=== PATIENT | female | born 1995 | race Caucasian/White ===

== ENCOUNTER 2017-08-19 02:11 | Emergency (ER) | payer BC, OTHER ==
[2017-08-19 02:19] VITALS: TEMP 36.5; O2SAT 98
[2017-08-19] MEDS ORDERED: ONDANSETRON 4MG OD TAB ONE (02:37)
[2017-08-19 02:54] LABS: BLOOD UREA NITROGEN 11 mg/dl (7-18); CALCIUM 8.6 mg/dl (8.5-10.1); CARBON DIOXIDE 19 mmol/L (21-32); CREATININE 0.73 mg/dl (0.60-1.20); GLUCOSE 98 mg/dl (70-99); POTASSIUM 2.9 mmol/L (3.5-5.1); SODIUM 136 mmol/L (136-145)
[2017-08-19] MEDS ORDERED: POTASSIUM CHLORIDE 20 MEQ TABCR PO STA (04:58)
[2017-08-19] MEDS ORDERED: POTASSIUM CHLORIDE 10 MEQ TABCR ONE (05:00)
[2017-08-19] MEDS ORDERED: BCPILLS PO (05:13)
[2017-08-19 05:20] VITALS: BP 90/39; PULSE 80; O2SAT 98
--- NOTE | 2017-08-19 08:34 | EMERGENCY ROOM VISIT NOTE ---
History Report prepared by Latrell: Silvana Oakes Under the Supervision of: Dr. Rasheeda Saenz D.O. First contact with patient: 02:15 Stated Complaint: ALCOHOL History of Present Illness The patient is a 22 year old female who presents to the Emergency Room with complaints of an episode of alcohol overdose occurring prior to arrival. Per EMS , the patient had 3 drinks tonight. They report that her roommates said she wasn 't able to move on her own and was breathing strangely. EMS states that they found her sitting slumped over upon arrival. The patient states that she had a [employer] and 2 [place] iced teas. The patient denies any breathing problems , falling, and knowing why she is shaking. HPI and ROS limited secondary to intoxication. Source of History: patient, EMS History Limited By: intoxication Onset: prior to arrival Position: other (global) Quality: other (overdose) Timing: other (episode) Note: The patient denies knowing why she is shaking, falling, and having any breathing problems. Review of Systems See HPI for pertinent positives & negatives. A total of 10 systems reviewed and were otherwise negative. Past Medical & Surgical Medical Problems: (1) No Known Active Medical Problems Family History No pertinent family history Social History Smoking Status: Unknown if Ever Smoked Alcohol Use: occasionally Marital Status: single Housing Status: lives with roommate Occupation Status: [employer] student Current/Historical Medications Scheduled Control Pills ( Control Pills), 1 TAB PO DAILY Allergies Coded Allergies: No Known Allergies (Unverified , 08/19/17) Physical Exam Vital Signs Date Time Temp Pulse Resp B/P (MAP) Pulse Ox O2 Delivery O2 Flow Rate FiO2 08/19/17 05:20 80 16 90/39 98 08/19/17 04:30 82 19 103/44 96 Room Air 08/19/17 04:05 74 08/19/17 04:00 83 18 104/51 96 Room Air 08/19/17 03:30 84 17 90/59 96 Room Air 08/19/17 03:00 86 18 94/59 88 Room Air 08/19/17 02:30 92 14 122/76 95 Room Air 08/19/17 02:20 105 08/19/17 02:19 36.5 106 19 111/88 98 Room Air 08/19/17 02:19 98 Room Air Physical Exam General: Semiresponsive and smells of alcohol. HEENT: Head - normocephalic and atraumatic Pupils are 2 mm and non-reactive to light. Extraocular eye muscles are intact, and sclera are anicteric. Nose - moist nasal mucosa without discharge. Mouth - moist buccal mucosa. Oropharynx is nonerythematous and there is no tonsillar exudate or edema noted. Neck: Supple; no JVD, nuchal rigidity, cervical lymphadenopathy. Heart: Tachycardic rate and regular rhythm. There is a normal S1 and S2 with no murmurs, clicks, or gallops appreciated. Lungs: Clear to auscultation bilaterally with no wheezes, rales, or rhonchi. Abdomen: Soft, completely nontender, nondistended, with good bowel sounds. There are no palpable pulsatile masses or hepatosplenomegaly. There is no guarding, rigidity, or rebound noted. Extremities: No evidence of cyanosis, clubbing, or edema. There are easily palpable peripheral pulses. Skin: warm and dry with good turgor and no rashes. Medical Decision & Procedures Laboratory Results 08/19/17 02:17 Test 08/19/17 02:17 Anion Gap 14.0 mmol/L (3-11) Estimated GFR () 135.5 Estimated GFR (Non- 116.9 BUN/Creatinine Ratio 14.4 (10-20) Calcium Level 8.6 mg/dl (8.5-10.1) Ethyl Alcohol mg/dL 175.0 mg/dl (0-3) Laboratory results per my review. Medications Administered Medications (Trade) Dose Ordered Sig/Bibiana Route Start Time Stop Time Status Last Admin Dose Admin Ondansetron HCl (Zofran Odt) 4 mg STK-MED ONCE .ROUTE 08/19/17 02:37 08/19/17 02:38 DC 08/19/17 02:37 4 MG Potassium Chloride (Klor-Con M10) 20 meq STK-MED ONCE .ROUTE 08/19/17 05:00 08/19/17 05:01 DC 08/19/17 05:00 20 MEQ Procedure 0237: Ordered Zofran Odt 4 mg 0458: Ordered Potassium Chloride 20 meq PO. ED Course 0216: Past medical records reviewed. The patient was evaluated in room A12A. A complete history and physical exam was performed. Laboratory studies were drawn as above. She was observed on the metalizing machine operator automatic and pulse oximeter. She was placed in the prone position to avoid aspiration. 0237: Ordered Zofran Odt 4 mg for persistent dry heaving. 0458: Ordered Potassium Chloride 20 meq PO. 0500: Upon reevaluation, the patient was awake and alert. I discussed findings and results with her. She verbalized agreement of the treatment plan. The patient was discharged home. Medical Decision The patient is a 22 year old female who presents to the Emergency Room with complaints of an episode of alcohol overdose occurring prior to arrival. Differential diagnoses include alcohol overdose, drug intoxication, hypoglycemia , head injury. LABS: Potassium 2.9 Normal renal function Normal glucose Alcohol 175 This is a 22-year-old female patient who was brought to the emergency department after consuming too much alcohol. She is observed here overnight until she was more sober. It was noted that her potassium is low. She was given oral potassium replacement. I spent some time trying to the patient about the hazards of such excessive alcohol use. Medication Reconcilliation Current Medication List: was personally reviewed by me Blood Pressure Screening Patient's blood pressure: Normal blood pressure Blood pressure disposition: Did not require urgent referral Impression Primary Impression: Alcohol overdose Additional Impression: Hypokalemia Scribe Attestation The scribe's documentation has been prepared under my direction and personally reviewed by me in its entirety. I confirm that the note above accurately reflects all work, treatment, procedures, and medical decision making performed by me. Departure Information Dispostion Home / Self-Care Referrals [facility] (PCP) Forms HOME CARE DOCUMENTATION FORM, IMPORTANT VISIT INFORMATION Additional Instructions Avoid such excessive alcohol use in the future Rest. Take plenty of clear liquids today Use tylenol for headache. Take foods high in potassium Problem Qualifiers Primary Impression: Alcohol overdose Encounter type: initial encounter Injury intent: accidental or unintentional Qualified Codes: T51.91XA - Toxic effect of unspecified alcohol , accidental (unintentional), initial encounter
== END 2017-08-19 05:22 | disposition home or self-care (01) ==
LOC: C.EDA 02:11 → EDBD 02:11 → C.EDA 05:22
DX: T51.0X1A Toxic effect of ethanol, accidental (unintentional), initial encounter (principal); F10.120 Alcohol abuse with intoxication, uncomplicated; Y90.6 Blood alcohol level of 120-199 mg/100 ml; E87.6 Hypokalemia; Z79.3 Long term (current) use of hormonal contraceptives